=== PATIENT | female | born 1940 | race Caucasian/White ===

== ENCOUNTER 2021-07-17 14:50 | Emergency (ER) | payer MEDICARE, SELFPAY ==
--- NOTE | ~2021-07-17 | XR_ITS ---
XR shoulder RT min 2V DATE: 07/17/2021 15:09 INDICATION: Fall in October 2020. Right shoulder pain and limited range of motion TECHNIQUE: 4 views COMPARISON: None FINDINGS: There is chronic prominent calcification or soft tissue ossification along the superior asp ect of the right acromioclavicular joint. No right shoulder fracture, dislocation, periosteal reaction or bone destruction is evident. There is a prominent calcification in the region of the rotator cuff consistent with calcific tendini tis. Diffuse osteopenia. IMPRESSION: Prominent rotator cuff calcification consistent with calcific tendinitis Prominent calcification along the superior aspect of the right acromioclavicular joint Osteopenia Reviewed, dictated and finalized at location A. AL TECHNICIAN IMPRESSION: Prominent rotator cuff calcification consistent with calcific tendi nitis Prominent calcification along the superior aspect of the right acromioclavicula r joint Osteopenia
[2021-07-17 14:57] VITALS: BP 155/90; PULSE 105; RESP 16; TEMP 36.7; O2SAT 97
--- NOTE | 2021-07-17 15:33 | ED.UPPEXIN ---
HPI - Extremity Injury (Upper) General Chief Complaint: Extremity Injury, Upper Stated Complaint: R SHOULDER PAIN Time Seen by Provider: 07/17/21 15:30 Source: patient, RN notes reviewed and old records reviewed Mode of arrival: ambulatory Limitations: no limitations History of Present Illness HPI narrative: 80-year-old female who presents to [facility] care with complaints of right shoulder pain since October when she fell at [facility] when she was trying to get a cart to go shop from under the garage door area. Patient states she was so embarrassed when she fell that she didn't let anyone know. She states that she hit her head, her right shoulder, left knee and left wrist but no residual problems to those areas except for her right shoulder. Patient states she has not had it x-rayed before, she attended one physicial therapy session then she got sick before and around [place] and has not been back yet. She states that she has been trying to do some of those exercises at home but it just makes her pain worse. MD complaint: injury to: right and shoulder Onset (ago): month(s) ( states fall was in November 14) Context: fall Related Data Home Medications Medication Instructions Recorded Confirmed diltiazem HCl PO 07/17/21 furosemide 07/17/21 rivaroxaban [Xarelto] mg 07/17/21 Allergies Allergy/AdvReac Type Severity Reaction Status Date / Time No Known Allergies Allergy Verified 01/12/19 11:46 Review of Systems Review of Systems: CONSTITUTIONAL: Denies fever, chills, or sweats. EYES: Denies visual changes, redness, or discharge. ENT: Denies rhinorrhea, congestion, sore throat, or otalgia. CARDIOVASCULAR: Denies chest pain, palpitations, or edema. RESPIRATORY: Denies cough or dyspnea. GASTROINTESTINAL: Denies abdominal pain, nausea, vomiting, or diarrhea. GENITOURINARY: Denies dysuria or hematuria. SKIN: Denies rash or itching. MUSCULOSKELETAL: Denies back pain,positive for right shoulder pain joint pain, or myalgia. NEUROLOGIC: Denies headache, numbness, or weakness. PSYCHIATRIC: Denies anxiety or depression. All systems reviewed & are unremarkable except as noted in HPI and below PMFSH Past Medical History Medical History (Updated 07/17/21 @ 19:04 by Yen Louie NP) Arthritis Atrial fibrillation Back pain GERD (gastroesophageal reflux disease) Surgical History Surgical History (Updated 07/17/21 @ 19:06 by Yen Louie NP) History of total left knee replacement History of total right knee replacement Family History Family History (Updated 07/17/21 @ 19:08 by Yen Louie NP) Mother Hypertension Arthritis Alzheimers disease Father Heart disease Diabetes mellitus Kidney disease Social History Social History (Updated 07/17/21 @ 19:06 by Yen Louie NP) Smoking status: Never smoker Alcohol intake: never Substance use: never Living arrangements: with family Gender identity (if verbalized by the patient): Female Comments At time of signature, agree with nursing past medical, surgical, social and family history. There is no relevant family history pertinent to the presenting complaint Exam Narrative: GENERAL: Well-appearing, well-nourished, and in no acute distress. HEAD: Normocephalic, atraumatic. EYES: PERRLA and EOMI. ENT: Nares clear, no rhinorrhea or epistaxis. Mucous membranes moist.TM normal with god light reflex, throat normal with no lesions, exudates or tonsil enlargement NECK: Supple. no lymphadenopathy CHEST: Clear to auscultation. No respiratory distress. SO2 97% on room air HEART: Irregular rate and rhythm. No murmur heard. Normal peripheral pulses. ABDOMEN: Soft, nontender, nondistended, normal active bowel sounds. EXTREMITIES: Normal range of motion. No edema.Exception noted to strength of right arm with anterior flexion and decreased ROM of right shoulder with increase pain with abduction. SKIN: Warm, dry, no rash. NEURO: No focal deficits. Alert and orient
== END 2021-07-17 15:58 | disposition home or self-care (01) ==
PROVIDERS: Emergency Provider Registered Nurse; PCP Family Medicine
DX: M25.511 Pain in right shoulder (principal); M75.101 Unspecified rotator cuff tear or rupture of right shoulder, not specified as traumatic; M19.90 Unspecified osteoarthritis, unspecified site; I48.91 Unspecified atrial fibrillation; K21.9 Gastro-esophageal reflux disease without esophagitis; Z96.653 Presence of artificial knee joint, bilateral
CPT/HCPCS: 73030; 99213; G0463

== ENCOUNTER 2021-12-10 10:18 | Outpatient (CLI) | payer MEDICARE, SELFPAY ==
--- NOTE | ~2021-12-10 | CT_ITS ---
EXAMINATION: CT soft tissue neck w con DATE: 12/10/2021 10:52 INDICATION: Neck mass. TECHNIQUE: Computed tomography (CT) of the neck was performed with 75 mL Omnipaque 300 intravenous co ntrast. Automated exposure control and iterative reconstruction technique were employed. The dose-herminio gth product was 447.86 mGy-cm. COMPARISON: None FINDINGS: There are nodules in the thyroid measuring up to 16 mm. There is a skin marker in the anter ior neck at the midline. There is no abnormal mass in this region. There are no pathologically enlarg ed lymph nodes. There is plaque in the proximal internal carotid arteries with less than 50% stenosis relative to normal distal artery lumen diameters. There is mild mucosal thickening in the paranasal sinuses. There is severe cervical spondylosis. IMPRESSION: 1. Multinodular goiter. Consider thyroid ultrasound for stratification. Reviewed, dictated and finalized at location B.
[2021-12-10 10:47] LABS: Estimated Glomerular Filt Rate > 60
== END 2021-12-10 10:19 | disposition home or self-care (01) ==
PROVIDERS: PCP Family Medicine; Visit Provider Otolaryngology
DX: E04.2 Nontoxic multinodular goiter (principal)
CPT/HCPCS: 70491; Q9967

== ENCOUNTER 2022-06-03 13:06 | Emergency (ER) | payer OTHER, MEDICARE, SELFPAY ==
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
[2022-06-03 13:15] VITALS: BP 164/95; PULSE 97; RESP 16; TEMP 36.8; O2SAT 97
--- NOTE | 2022-06-03 14:35 | PC.NURSE ---
EDP at bedside to assess pt.
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
== END 2022-06-03 16:39 | disposition home or self-care (01) ==
PROVIDERS: Emergency Provider Nurse Practitioner Family; PCP Family Medicine
DX: S09.90XA Unspecified injury of head, initial encounter (principal); S19.9XXA Unspecified injury of neck, initial encounter; V49.40XA Driver injured in collision with unspecified motor vehicles in traffic accident, initial encounter
CPT/HCPCS: 70450; 72125; 99284; L0140

== ENCOUNTER 2024-02-20 16:48 | Emergency (ER) | payer MEDICARE, SELFPAY ==
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
[2024-02-20 17:34] VITALS: BP 133/81; PULSE 66; RESP 15; TEMP 36.4; O2SAT 95
--- NOTE | 2024-02-20 17:37 | ED.HEATRA ---
HPI - Head Injury General Chief complaint: Head Injury <Zoe Edward PA-C - Last Filed: 02/21/24 09:33> Stated complaint: FALL 02/14/[address] <Zoe Edward PA-C - Last Filed: 02/21/24 09:33> Time Seen by Provider: 02/20/24 17:37 <Zoe Edward PA-C - Last Filed: 02/21/24 09:33> Focused HPI: This is a 83 year old female that presents to the ER for a fall about a week ago with head injury. Reports she tripped and landed flat on her face in her garden. She had some x-rays of her ribs and face, was prompted to be seen in the ER for CT scan of her brain due to her being on a blood thinner. GENERAL: Well-appearing, well-nourished, and in no acute distress. HEAD: Normocephalic, atraumatic. CHEST: Clear to auscultation. ?No respiratory distress. HEART: Regular rate and rhythm.? NEURO: ?Alert and oriented x3. Patient screened in triage and initial orders placed.? ?Additional care and disposition to be based upon?diagnostic testing and treatment. <Zoe Edward PA-C - Last Filed: 02/21/24 09:33> Focused HPI: This is a 83 year old female that presents to the ER for a fall about a week ago with head injury. Reports she tripped and landed flat on her face in her garden hitting left front of her head on a walk on the ground. She had some x-rays of her ribs and face, was prompted to be seen in the ER for CT scan of her brain due to her being on a blood thinner. GENERAL: Well-appearing, well-nourished, and in no acute distress. HEAD: Normocephalic, atraumatic. CHEST: Clear to auscultation. ?No respiratory distress. HEART: Regular rate and rhythm.? NEURO: ?Alert and oriented x3. Patient screened in triage and initial orders placed.? ?Additional care and disposition to be based upon?diagnostic testing and treatment. Agree with triage assessment. Patient denies any headache, focal weakness, vision changes, numbness and tingling. <Damino Haider MD - Last Filed: 02/21/24 00:01> Related Data Home medications: Home Medications Medication Instructions Recorded Confirmed diltiazem HCl 180 mg PO 07/17/21 capsule,extended release 24 hr, controlled furosemide 20 mg tablet 07/17/21 rivaroxaban 20 mg tablet (Xarelto) mg 07/17/21 <Zoe Edward PA-C - Last Filed: 02/21/24 09:33> Allergies/Adverse reactions: Allergies Allergy/AdvReac Type Severity Reaction Status Date / Time No Known Allergies Allergy Verified 06/03/22 15:09 <Zoe Edward PA-C - Last Filed: 02/21/24 09:33> Review of Systems Review of Systems: All systems are reviewed and are negative unless stated otherwise in the HPI. <Damion Haider MD - Last Filed: 02/21/24 00:01> PMFSH Past Medical History Medical History: Medical History Arthritis Atrial fibrillation Back pain GERD (gastroesophageal reflux disease) <Zoe Edward PA-C - Last Filed: 02/21/24 09:33> Surgical History Surgical History: Surgical History History of total left knee replacement History of total right knee replacement <Zoe Edward PA-C - Last Filed: 02/21/24 09:33> Family History Family History: Family History Mother Hypertension Arthritis Alzheimers disease Father Heart disease Diabetes mellitus Kidney disease <Zoe Edward PA-C - Last Filed: 02/21/24 09:33> Social History Social History: Social History Smoking status: Never smoker Alcohol intake: never Substance use: never Living arrangements: with family Gender identity (if verbalized by the patient): Female <Zoe Edward PA-C - Last Filed: 02/21/24 09:33> Exam Narrative: General: Alert, awake, afebrile, in no acute distress. HEENT: PERRL, no rhinorrhea, no post nasal
[2024-02-20 23:31] VITALS: BP 166/102; PULSE 82; RESP 15; O2SAT 97
[2024-02-21 00:14] VITALS: BP 158/100; PULSE 80; RESP 16; O2SAT 100
== END 2024-02-21 00:15 | disposition home or self-care (01) ==
LOC: ANHED 23:49
PROVIDERS: Emergency Provider Emergency Medicine; PCP Family Medicine
DX: S09.90XA Unspecified injury of head, initial encounter (principal); R90.82 White matter disease, unspecified; M47.812 Spondylosis without myelopathy or radiculopathy, cervical region; M19.90 Unspecified osteoarthritis, unspecified site; I48.91 Unspecified atrial fibrillation; K21.9 Gastro-esophageal reflux disease without esophagitis; W01.0XXA Fall on same level from slipping, tripping and stumbling without subsequent striking against object, initial encounter
CPT/HCPCS: 70450; 70486; 72125; 99284